=== PATIENT | female | born 1995 | race Asian ===

== ENCOUNTER 2020-11-03 08:20 | Outpatient (RCR) | payer MEDICARE, SELFPAY | END 2020-12-27 23:59 | LOC: IMMUN 08:20 | PROVIDERS: Visit Provider Family Medicine | DX: Z23 Encounter for immunization (principal) | CPT/HCPCS: 0001A; 0002A; 91300 ==

== ENCOUNTER 2023-01-30 11:05 | Outpatient (CLI) | payer BC, SELFPAY ==
[2023-01-30 11:18] VITALS: BP 131/88; PULSE 85; TEMP 36.9; O2SAT 98
[2023-01-30 11:57] VITALS: BMI 36.8
--- NOTE | 2023-01-30 21:42 | OB.TRI.NOTE ---
HPI - General HPI Narrative GUERO LIZ, is a 27 F at 38.6 weeks gestation who presents with decreased movement. Maternal Data Information PAULINA Calculator Estimated Delivery Date Method Current WG Current Estimate 02/07/23 Manual 38w 6d PFSH PFSH Medical History Gastrointestinal complaint Home Medications NK 05/30/22 [History Last Taken Unknown] Allergy/AdvReac Type Severity Reaction Status Date / Time No Known Allergies Allergy Unverified 05/30/22 12:49 Social History adopted: No household members: spouse housing: apartment current occupational status: employed current occupation: [employer] as [employer] leisure activities: other history of recent travel: No sexually active: Yes Smoking Status: Never smoker alcohol intake: current details: socially substance use type: does not use seatbelt use: always do you feel safe at home: Yes ROS Eyes Eyes: Denies blurry vision Cardiovascular Cardiovascular: Reports none; Denies chest pain at rest, chest pain with activity or dizziness Respiratory/Chest Respiratory/Chest: Denies cough or dyspnea Gastrointestinal Gastrointestinal: Reports none and other; Denies diarrhea or vomiting Genitourinary Genitourinary: Denies dysuria Musculoskeletal Musculoskeletal: Reports none Integumentary Integumentary: Reports none; Denies rash Neurologic Neurologic: Denies dizziness, headache(s) or other visual disturbances Psychiatric Psychiatric: Reports none Physical Exam Const alert and no apparent distress General Appearance: cooperative Orientation / Consciousness: awake Exam Limitations: no limitations HEENT normocephalic Eyes General Eye: normal appearance of both eyes Neck full ROM Chest inspection of chest normal Resp normal respiratory effort and normal air movement Effort and Inspection: symmetric chest movement Auscultation: clear to auscultation bilaterally Cardio regular rate GI soft to palpation, non-tender and non-distended Inspection: and other Back/Spine normal ROM Extremity full ROM, normal capillary refill and no calf tenderness Skin no rashes or lesions noted Neuro oriented x3 and CN's II-XII intact bilaterally Psych mental status grossly normal NST FHR Rate Baby A Baseline: 150 Variability:: Moderate Accelerations:: 15 x 15 Decelerations:: None NST Reactive:: Yes FHR Category:: Category I Uterine Activity:: none Assessment & Plan (1) 38 weeks gestation of : (2) Decreased movement: PLAN: Plan NST reactive, Cat. 1 tracing Patient has felt movement since arrival to unit D/C home with follow up in office Labor precautions and kick counts reviewed with patient
== END 2023-01-30 11:55 | disposition home or self-care (01) ==
LOC: WPOUT 11:11 → WP 11:12
PROVIDERS: Referring Provider Advanced Practice Midwife; Visit Provider Advanced Practice Midwife
DX: O36.8130 Decreased fetal movements, third trimester, not applicable or unspecified (principal); Z3A.38 38 weeks gestation of pregnancy
CPT/HCPCS: 59025; 59050; 99221; G0378

== ENCOUNTER 2023-02-10 15:35 | Inpatient (IN) | payer BC, SELFPAY ==
[2023-02-10] VITALS (28 sets, daily range): BP systolic 101–132; BP diastolic 56–83; PULSE 65–82; TEMP 36.3–37.2; O2SAT 95–100; BMI 37.8
[2023-02-10 15:26] LABS: ROM Internal Control Test YES-OK TO RESULT pt. (Internal QC)
[2023-02-10 15:27] LABS: ROM Patient Test POSITIVE (Negative); Record Kit Lot#, ROM+ K1374
[2023-02-10] MEDS: Lactated Ringers 1,000 ML 50 ML IV (16:00)
[2023-02-10 16:17] LABS: Absolute Lymphocyte Count 2.33 X10^3/uL (0.83-4.51); Absolute Neutrophil Count 5.5 X10^3/uL (2.0-7.7); Basophil# 0.02 X10^3/uL; Basophil% 0.2 % (0-1); Eosinophil# 0.04 X10^3/uL; Eosinophils% 0.5 % (0-5); Hematocrit 39.1 % (37-47); Hemoglobin 13.2 g/dL (12.0-15.0); Lymphocyte # 2.33 X10^3/ul (0.83-4.51); Lymphocyte % 27.7 % (19-41); Mean Corp Hgb Conc 33.8 g/dL (32-36); Mean Corpuscular Hgb 28.4 pg (27.0-32.0); Mean Corpuscular Volume 84.1 fL (81-99); Mean Platelet Vol. 10.5 fl (6.2-12.0); Monocyte% 5.9 % (0-10); NRBC Flagged by Analyzer 0 % (0-5); Neutrophil % 65.3 % (47-70); Platelet Count 187 K/mm3 (150-450); RBC Distribution Width CV 14.6 % (11.6-14.6); RBC Distribution Width SD 44.5 fl (35.1-43.9); Red Blood Count 4.65 M/mm3 (4.2-5.4); White Blood Count 8.4 K/mm3 (4.4-11.0)
[2023-02-10 17:00] LABS: Syphilis Antibodies Non-reactive
[2023-02-10] MEDS: Oxytocin 15 Units/NS 250ml 15 UNITS/250 ML IV.SOLN 2 UNITS IV (17:24)
[2023-02-10] MEDS: LACTATED RINGERS 500 ML 999 ML IV (19:41)
--- NOTE | 2023-02-10 20:44 | HP.PCM.OB_ITS ---
HPI - General General
--- NOTE | 2023-02-10 20:44 | PCM.HP.OB ---
HPI - General General Date of Admission: 02/10/23 Date of Service: 02/10/23 Chief Complaint: SROM and ctx's HPI Narrative GUERO LIZ, is a 27 F who presents at 40w3d with ctx's and possible LOF. She reports some leaking of fluid since yesterday 02/09/23. She never felt any large gushes of fluid, so she was uncertain if it was amniotic fluid or not. Ctx's since yesterday that have been increasing in intensity. No vb. Good FM. 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 leisure activities: other history of recent travel: No sexually active: Yes Smoking Status: Never smoker alcohol intake: current details: socially substance use type: does not use seatbelt use: always do you feel safe at home: Yes History Elective abortions Hx Para 0 Spontaneous abortions Hx # Term Pregnancies Ectopic pregnancies Hx # Pregnancies Multiple births # of living children NST FHR Rate Baby A Baseline: 150 Variability:: Moderate Accelerations:: 15 x 15 Decelerations:: None NST Reactive:: Yes FHR Category:: Category I Uterine Activity:: Unable to trace ctx's well Vital Signs Vital Signs Vital Signs: 02/10/23 15:13 02/10/23 15:14 02/10/23 15:14 Temperature Temperature Source Temporal Pulse Rate 75 Blood Pressure 129/73 H BP Systolic 129 BP Diastolic 73 Pulse Ox Oxygen Delivery Method 02/10/23 15:13 02/10/23 17:11 02/10/23 17:11 Temperature 98.8 F Temperature Source Temporal Pulse Rate Blood Pressure 132/82 H BP Systolic 132 BP Diastolic 82 Pulse Ox Oxygen Delivery Method 02/10/23 17:11 02/10/23 17:11 02/10/23 17:11 Temperature 98.1 F Temperature Source Pulse Rate 68 Blood Pressure BP Systolic BP Diastolic Pulse Ox 97 Oxygen Delivery Method 02/10/23 18:43 02/10/23 18:43 02/10/23 18:43 Temperature Temperature Source Pulse Rate 77 73 Blood Pressure 110/64 BP Systolic 110 BP Diastolic 64 Pulse Ox Oxygen Delivery Method 02/10/23 18:43 02/10/23 18:43 02/10/23 19:16 Temperature 99.0 F Temperature Source Pulse Rate Blood Pressure 122/79 H BP Systolic 122 BP Diastolic 79 Pulse Ox 95 Oxygen Delivery Method 02/10/23 19:16 02/10/23 19:16 02/10/23 19:16 Temperature Temperature Source Pulse Rate 74 74 Blood Pressure BP Systolic BP Diastolic Pulse Ox 97 Oxygen Delivery Method 02/10/23 19:17 02/10/23 19:17 02/10/23 20:32 Temperature 97.8 F Temperature Source Temporal Pulse Rate 75 Blood Pressure BP Systolic BP Diastolic Pulse Ox Oxygen Delivery Method 02/10/23 20:32 02/10/23 20:34 02/10/23 20:34 Temperature Temperature Source Pulse Rate 74 Blood Pressure 131/83 H BP Systolic 131 BP Diastolic 83 Pulse Ox 98 Oxygen Delivery Method 02/10/23 20:37 02/10/23 20:37 02/10/23 20:40 Temperature Temperature Source Pulse Rate 68 Blood Pressure 123/82 H BP Systolic 123 BP Diastolic 82 Pulse Ox 98 Oxygen Delivery Method 02/10/23 20:40 02/10/23 17:36 Temperature Temperature Source Pulse Rate 81 Blood Pressure BP Systolic BP Diastolic Pulse Ox 97 Oxygen Delivery Method Room Air Weight Weight: 220 lb 9.6 oz Body Mass Index (BMI) 37.8 Labs Labs Labs: Blood Type A POSITIVE Antibody Screen NEGATIVE Hct 39.1 % (37-47) Hgb 13.2 g/dL (12.0-15.0) Syphilis Total Ab Non-reactive GBS negative Assessment & Plan (1) 40 weeks gestation of : PLAN: Admit for labor and routine intrapartum care. Unclear time of rupture as patient is not certain, however ROM plus positive. Cvx changed from 1.5 to 4 cm. Cvx 4/80/0, vertex, ruptured forebag for moderate amount of clear fluid. Epidural for pain control. GBS negative. EFW expected to be < 4500 g and pelvis adequate. Pitocin per protocol for augmentation as needed. (2) SROM (spontaneous rupture of membranes): (3) Uterine contractions: (4) Obesity affecting :
[2023-02-10] MEDS: fentaNYL-bupivacaine (epidural) 100 ML BAG EPIDURAL (20:46)
[2023-02-10] MEDS: Lactated Ringers 1,000 ML 200 ML IV (23:56)
[2023-02-11] VITALS (33 sets, daily range): BP systolic 99–138; BP diastolic 51–74; PULSE 64–143; RESP 16–17; TEMP 36.4–37.2; O2SAT 81–100
[2023-02-11] MEDS: fentaNYL-bupivacaine (epidural) 100 ML BAG EPIDURAL ×2 (01:14→05:27)
[2023-02-11] MEDS: Lactated Ringers 1,000 ML 200 ML IV (05:04)
[2023-02-11] MEDS: Ondansetron 4 MG/2 ML Vial IV (07:40)
[2023-02-11] MEDS: Oxytocin 15 Units/NS 250ml 15 UNITS/250 ML IV.SOLN 999 UNITS IV (09:03)
[2023-02-11] MEDS: Methylergonovine 0.2 MG/ML Ampul IM (09:06)
[2023-02-11] MEDS: miSOPROStol 200 MCG Tablet 1000 MCG RC (09:20)
[2023-02-11 09:32] LABS: Hematocrit 29.4 % (37-47); Hemoglobin 9.5 g/dL (12.0-15.0); Mean Corp Hgb Conc 32.3 g/dL (32-36); Mean Corpuscular Hgb 27.9 pg (27.0-32.0); Mean Corpuscular Volume 86.2 fL (81-99); Mean Platelet Vol. 10.7 fl (6.2-12.0); Platelet Count 137 K/mm3 (150-450); RBC Distribution Width CV 14.3 % (11.6-14.6); RBC Distribution Width SD 45.2 fl (35.1-43.9); Red Blood Count 3.41 M/mm3 (4.2-5.4)
--- NOTE | 2023-02-11 09:37 | EX.PCM.OBRPT ---
Maternal Data Information PAULINA Calculator Estimated Delivery Date Method Current WG Current Estimate 02/07/23 Manual 40w 4d Vaginal Delivery Operative Information Date of Procedure: 02/11/23 Pre-Operative Diagnosis: obesity in , SROM, 40 weeks, maternal exhaustion, meconium fluid Post-Operative Diagnosis: same, live male infant, Surgery / Procedure Performed: Vacuum Assisted Vaginal Delivery Type of Anesthesia: Epidural Drain: Rodas to straight drain Estimated Blood Loss: 600 Time of Delivery: 08:46 Findings Description of Procedure: Patient progressed to fully dilated. Describes maternal exhaustion and is requesting vacuum assistance for delivery. Patient was counseled on risks of vacuum extraction including but not limited to scalp lacerations, maternal vaginal lacerations, brain bleeds. Patient is pushing effectively with scalp noted on the perineum with pushing. Rodas is draining effectively epidural anesthesia was found to be adequate. Estimated weight 8 pounds. Pelvis feels adequate. At this time the vacuum was applied to the flexion point sent to the green zone at 550 mmHg. With good maternal pushing efforts and 1 contraction the vacuum was used and the head was delivered without complication. 2 loose nuchal's were appreciated and reduced without complication. The vacuum was removed prior to this. Good maternal pushing efforts delivered the anterior shoulder with gentle downward traction followed by the rest the infant's body. The cord was immediately clamped and cut. Meconium stained fluid was appreciated. The infant was handed to the awaiting nursery team for evaluation. Pitocin was started and placenta was delivered intact without complication. Third-degree vaginal laceration was appreciated. At this time anesthesia was still found to be adequate and good visualization was appreciated. Rectal exam was performed which revealed intact anal mucosa. Internal anal sphincter was identified and appeared to be intact. The external anal sphincter appeared to be lacerated. It was grasped with Allis clamps and 2-0 Vicryl suture was used to reapproximate this in a mattress suture fashion using 2 separate sutures. I then repeated my rectal exam no sutures to the rectal mucosa and good support was appreciated. At this time the remaining laceration was repaired in the usual fashion using 2-0 Vicryl and 3-0 Rapide suture. There was steady bleeding appreciated and at this point vaginal exam was performed no cervical lacerations were appreciated Methergine was given and rectal Cytotec was given. Second IV was started as a precaution. Rectal exam was then performed at the end of my repair no sutures again noted through the rectal mucosa and good support was appreciated. 1 g of cefotetan will be given. Patient will get sitz bath's and I will send her to perineal wound clinic for further evaluation and healing. She will remain on stool softeners. Presentation: Vertex Amniotic Membrane Rupture Type: Spontaneous Amniotic Fluid Description: Lightly stained meconium Placental Delivery Description: Spontaneous Placenta Disposition: [facility] Cord Vessel Description: 3 Vessels Cord Entanglement: Around neck x 2, loose Nuchal Cord Compression: With compression A Gender: Male (1 minute): 8 (5 minute): 9 Delayed Cord Clamping: No Post Vaginal Delivery Medications Given After Delivery: IV Pitocin, IM Methergin and - (Rectal Cytotec 1000mcg) Episiotomy Description: None Laceration: Perineal Extension/lac and 3rd degree Complication Complications: None
[2023-02-11 09:42] LABS: Fibrinogen 565 mg/dl (203-444)
[2023-02-11] MEDS: Acetaminophen 500 MG Tablet PO (11:27)
[2023-02-11] MEDS: Senna/Docusate Sodium 1 Tablet PO (12:39)
[2023-02-11] MEDS: Ketorolac 10 MG Tablet PO ×2 (12:39→20:22)
[2023-02-11] MEDS: oxyCODONE 5 MG Tablet PO (14:04)
[2023-02-11] MEDS: Acetaminophen 500 MG Tablet 1000 MG PO (20:22)
[2023-02-12 00:39] VITALS: BP 105/64; PULSE 87; RESP 16; TEMP 36.6; O2SAT 95
[2023-02-12] MEDS: Acetaminophen 500 MG Tablet 1000 MG PO ×3 (02:05→20:07)
[2023-02-12] MEDS: Ketorolac 10 MG Tablet PO ×2 (02:05→08:29)
[2023-02-12] MEDS: Benzocaine/Lanolin/Aloe Vera 1 SPRAY EACH TOPICAL (02:06)
[2023-02-12 04:50] VITALS: BP 102/67; PULSE 66; RESP 16; TEMP 36.6; O2SAT 98
[2023-02-12 05:56] LABS: Hematocrit 28.3 % (37-47); Hemoglobin 9.3 g/dL (12.0-15.0); Mean Corp Hgb Conc 32.9 g/dL (32-36); Mean Corpuscular Hgb 28.4 pg (27.0-32.0); Mean Corpuscular Volume 86.5 fL (81-99); Mean Platelet Vol. 10.9 fl (6.2-12.0); Platelet Count 167 K/mm3 (150-450); RBC Distribution Width CV 14.6 % (11.6-14.6); RBC Distribution Width SD 46.3 fl (35.1-43.9); Red Blood Count 3.27 M/mm3 (4.2-5.4); White Blood Count 14.1 K/mm3 (4.4-11.0)
[2023-02-12 08:30] VITALS: BP 100/64; PULSE 84; RESP 16; TEMP 36.3
--- NOTE | 2023-02-12 08:45 | PCM.PN.OB ---
Subjective Subjective Patient seen at bedside. Feeling better today. Pain is controlled. Ambulating and voiding without difficulty. Lochia is decreasing. with minimal support. Denies any headache, dizziness, SOB, or CP. Desires discharge tomorrow. Objective Data Objective Data Vital Signs: Vital Signs Temp Pulse Resp BP Pulse Ox O2 Del Method 97.8 F 66 16 102/67 98 Room Air 02/12/23 04:50 02/12/23 04:50 02/12/23 04:50 02/12/23 04:50 02/12/23 04:50 02/12/23 04:50 Oxygen Delivery Method Room Air Weight: 220 lb 9.6 oz Body Mass Index (BMI) 37.8 Intake & Output: Intake and Output for Last 24 Hours 02/10/23 02/11/23 02/12/23 23:59 23:59 23:59 Intake Total 1630.84 / 1630.84 2950.00 / 2950.00 Output Total 200 / 200 1700 / 1700 Balance 1430.84 / 1430.84 1250.00 / 1250.00 Lab / Micro Data 02/12/23 05:36 Labs: Laboratory Results - last 24 hr 02/11/23 09:20: WBC 10.0, RBC 3.41 L, Hgb 9.5 L, Hct 29.4 L, MCV 86.2, MCH 27.9, MCHC 32.3, RDW Std Deviation 45.2 H, RDW Coeff of Rosenda 14.3, Plt Count 137 L, MPV 10.7, Fibrinogen 565 H 02/12/23 05:36: WBC 14.1 H, RBC 3.27 L, Hgb 9.3 L, Hct 28.3 L, MCV 86.5, MCH 28.4, MCHC 32.9, RDW Std Deviation 46.3 H, RDW Coeff of Rosenda 14.6, Plt Count 167, MPV 10.9 ROS Eyes Eyes: Denies blurry vision, change in vision or spots in vision ENT HEENT: Denies dizziness or headache(s) Cardiovascular Cardiovascular: Denies abdominal pain, chest pain or dyspnea Respiratory/Chest Respiratory/Chest: Denies cough, dyspnea, shortness of breath at rest or shortness of breath with exertion Gastrointestinal Gastrointestinal: Denies abdominal pain, diarrhea or vomiting Genitourinary Genitourinary: Denies change in urinary stream, difficulty urinating or dysuria Musculoskeletal Musculoskeletal: Reports none Integumentary Integumentary: Denies rash Neurologic Neurologic: Denies dizziness, headache(s), memory loss or weakness Physical Exam Const alert and no apparent distress General Appearance: cooperative and comfortable Exam Limitations: no limitations HEENT normocephalic Eyes General Eye: normal appearance of both eyes Neck full ROM General: normal visual inspection Chest Chest: symmetrical chest wall rise Resp normal respiratory effort and normal air movement Effort and Inspection: symmetric chest movement Auscultation: clear to auscultation bilaterally Cardio regular rate and regular rhythm GI normal to inspection, nondistended, normoactive bowel sounds Back/Spine normal ROM Extremity full ROM and no calf tenderness General Extremity: normal exam except as noted Skin no rashes or lesions noted Neuro CN's II-XII intact bilaterally Psych mental status grossly normal Assessment & Plan (1) Obesity affecting : (2) Vacuum extraction, delivered, current hospitalization: (3) Third degree perineal laceration: (4) Care and examination of lactating mother: PLAN: Plan PPD 1 Vacuum assisted delivery 3rd degree laceration Pain control support HGB. 9.3- stable Anticipate discharge home tomorrow
[2023-02-12 14:30] VITALS: BP 110/65; PULSE 77; RESP 16; TEMP 36.4
[2023-02-12] MEDS: Senna/Docusate Sodium 1 Tablet PO (14:49)
[2023-02-12 20:00] VITALS: BP 111/56; PULSE 87; RESP 15; TEMP 37.2; O2SAT 96
[2023-02-13 01:45] VITALS: BP 114/76; PULSE 85; RESP 15; O2SAT 96
--- NOTE | 2023-02-13 06:56 | PCM.PN.OB ---
Subjective Subjective Patient seen at bedside. Ambulating and voiding without difficulty. Denies headache, dizziness, CP, or SOB. Lochia decreasing. with minimal support. Desires discharge home today. Objective Data Objective Data Vital Signs: Vital Signs Temp Pulse Resp BP Pulse Ox O2 Del Method 98.9 F 85 15 114/76 96 Room Air 02/12/23 20:00 02/13/23 01:45 02/13/23 01:45 02/13/23 01:45 02/13/23 01:45 02/13/23 01:45 Oxygen Delivery Method Room Air Weight: 220 lb 9.6 oz Body Mass Index (BMI) 37.8 Intake & Output: Intake and Output for Last 24 Hours 02/11/23 02/12/23 02/13/23 23:59 23:59 23:59 Intake Total 2950.00 / 2950.00 Output Total 1700 / 1700 Balance 1250.00 / 1250.00 Lab / Micro Data 02/12/23 05:36 ROS Eyes Eyes: Denies blurry vision, change in vision or spots in vision ENT HEENT: Denies dizziness or headache(s) Cardiovascular Cardiovascular: Denies abdominal pain, chest pain or dyspnea Respiratory/Chest Respiratory/Chest: Denies cough, dyspnea, shortness of breath at rest or shortness of breath with exertion Gastrointestinal Gastrointestinal: Denies abdominal pain, diarrhea or vomiting Genitourinary Genitourinary: Denies change in urinary stream, difficulty urinating or dysuria Musculoskeletal Musculoskeletal: Reports none Integumentary Integumentary: Denies rash Neurologic Neurologic: Denies dizziness, headache(s), memory loss or weakness Assessment & Plan (1) Care and examination of lactating mother: (2) Third degree perineal laceration: (3) Vacuum extraction, delivered, current hospitalization: PLAN: Plan PPD 2 Routine care D/C home with follow up in perineal wound care clinic / [facility]
--- NOTE | 2023-02-13 06:58 | DCINST_ITS ---
Discharge Instructions Diet Discharge Diet: No restrictions Activity Discharge Activity: Return to Normal Activity, May Shower and May Take a Tub Bath May resume sexual activity in: 4-6 weeks Weight Bearing Status: Weight bearing as tolerated Dressing / Incision Call your doctor if you observe: Inability to urinate, Using more than 1 pad per hour, Shortness of breath, Dizziness, Swelling in the ankles, Chest pain, Calf discomfort and Uncontrolled pain Follow Up Care When: Within 10 days Test Results: Test results from this visit will be discussed in further detail at your follow- up appointment, if applicable. Discharge Plan Admission Admit Date/Time: 02/10/23 15:35 Primary Reason for Your Visit: Labor and Delivery Attending Provider: Shilpi Betancur Primary Care Provider: Gabriela Thapa Primary Instructions Additional Instructions / Restrictions: Patient to follow up with perineal clinic at [facility]. Referral placed and they will assist with scheduling you. Discharge Orders/Prescriptions Prescriptions: New sennosides-docusate sodium [Stool Softener-Stimulant Laxat] 8.6-50 mg Tablet 1 - 2 tab PO DAILY PRN PRN (Reason: Constipation ) Qty: 0 0RF acetaminophen 500 mg Tablet 1,000 mg PO Q6H PRN PRN (Reason: Pain 1-10 Or Fever) Qty: 0 0RF ibuprofen 600 mg Tablet 600 mg PO Q6H PRN PRN (Reason: Pain Score 1-3) Qty: 0 0RF Continued vit no.[id number] [Classic ] 1 tab PO DAILY Referrals / Follow Up: Care PhysicianGabriela Primary [Primary Care Provider] - Disposition Disposition (needs filled in before D/C Order can be placed): Home, Self Care
[2023-02-13 08:31] VITALS: BP 126/80; PULSE 75; RESP 16; TEMP 36.4; O2SAT 96
[2023-02-13] MEDS: Acetaminophen 500 MG Tablet 1000 MG PO (10:56)
[2023-02-13] MEDS: Ibuprofen 600 MG Tablet PO (10:56)
[2023-02-13] MEDS: Senna/Docusate Sodium 1 Tablet PO (10:56)
== END 2023-02-13 11:40 | disposition home or self-care (01) | DRG 768 ==
LOC: WPOUT 15:35 → WP 15:35
PROVIDERS: Admitting Provider Obstetrics & Gynecology; Referring Provider Obstetrics & Gynecology; Visit Provider Obstetrics & Gynecology
DX: O99.214 Obesity complicating childbirth (principal); Z37.0 Single live birth; E66.9 Obesity, unspecified; O69.81X0 Labor and delivery complicated by cord around neck, without compression, not applicable or unspecified; Z3A.40 40 weeks gestation of pregnancy; O77.0 Labor and delivery complicated by meconium in amniotic fluid; O75.81 Maternal exhaustion complicating labor and delivery; O70.20 Third degree perineal laceration during delivery, unspecified
CPT/HCPCS: 59025; 59050; 84112; 85025; 85027; 85384; 86780; 86850; 86900; 86901; 99221; J7120; G0378; J2405